=== PATIENT | female | born 1985 | race American Indian/Alaskan Native ===

== ENCOUNTER 2016-12-19 07:01 | Emergency (ER) | payer OTHER ==
[2016-12-19 07:16] VITALS: BP 172/66
[2016-12-19] MEDS ORDERED: ZOFRAN ODT PO ONE (07:38)
[2016-12-19] MEDS ORDERED: LIDOCAINE VISCOUS 2% PO ONE (07:38)
[2016-12-19] MEDS ORDERED: MILK OF MAGNESIA PO ONE (07:40)
[2016-12-19] MEDS ORDERED: ZOFRAN IV ONE (08:43)
[2016-12-19] MEDS ORDERED: PEPCID IV ONE (08:43)
[2016-12-19] MEDS ORDERED: PROTONIX IV ONE (08:43)
[2016-12-19] MEDS ORDERED: NACL 0.9% 1000 ML 1,000 ML ONE (09:31)
[2016-12-19] MEDS ORDERED: NACL 0.9% 1000 ML 1,000 ML IV ONE (09:35)
[2016-12-19 09:47] LABS: Hematocrit 39.8 % (30.3-42.9); Hemoglobin 13.2 gm/dl (10.1-14.3); Mean Corpuscular HGB Conc 33 % (30-34); Mean Corpuscular Hemoglobin 28 pg (28-32); Mean Corpuscular Volume 86 fl (79-97); Platelet Count 200 K/mm3 (140-440); Red Blood Count 4.65 M/mm3 (3.65-5.03); Red Cell Distribution Width 14.3 % (13.2-15.2); White Blood Count 13.6 K/mm3 (4.5-11.0)
[2016-12-19 10:04] LABS: Alanine Aminotransferase 12 units/L (7-56); Albumin 4.4 g/dL (3.9-5); Albumin/Globulin Ratio 1.3 %; Alkaline Phosphatase 83 units/L (35-129); Anion Gap 22 mmol/L; BUN/Creatinine Ratio 11.42; Blood Urea Nitrogen 8 mg/dL (7-17); Calcium 9.5 mg/dL (8.4-10.2); Carbon Dioxide 21 mmol/L (22-30); Chloride 99.8 mmol/L (98-107); Glucose 120 mg/dL (65-100); Lipase 23 units/L (13-60); Potassium 3.5 mmol/L (3.6-5.0); Sodium 139 mmol/L (137-145); Total Protein 7.8 g/dL (6.3-8.2)
[2016-12-19] MEDS ORDERED: REGLAN IV ONE (11:45)
--- NOTE | 2016-12-19 13:16 | Emergency Department Report ---
Vomiting/Diarrhea - [facility] Chief Complaint: Nausea/Vomiting/Diarrhea Stated Complaint: CP/VOMITING Time Seen by Provider: 12/19/16 07:46 Duration: 5 Days Severity: mild Nausea/Vomiting Severity: Mild Diarrhea Severity: Mild Pain Location: Epigastric Pain Severity: Mild Symptoms: Yes Able to Tolerate Fluids, No Watery Diarrhea, No Bloody diarrhea, No Fever, No Recent Unusual Foods, No Recent Untreated Water, No Recent use of Antibiotics, No Family w/ Similar Symptoms, No Contacts w/ Similar Symptoms, No Rash, No Hematuria, No Recent URI Symptoms Other History: 31 year old female presents with NVD and upper abdominal pain for about a week. states that she has changed her diet to exclude meat but continues to have same symptoms. states pain is in upper abdomen and substernal. denies fever, sob, dysuria, pelvic pain. ED Review of Systems ROS: Stated complaint: CP/VOMITING Other details as noted in HPI Constitutional: denies: chills, fever Eyes: denies: eye pain, eye discharge, vision change ENT: denies: ear pain, throat pain Respiratory: denies: cough, shortness of breath, wheezing Cardiovascular: denies: chest pain, palpitations Endocrine: no symptoms reported Gastrointestinal: abdominal pain, nausea, vomiting, diarrhea Genitourinary: denies: urgency, dysuria, discharge Musculoskeletal: denies: back pain, joint swelling, arthralgia Skin: denies: rash, lesions Neurological: denies: headache, weakness, paresthesias Psychiatric: denies: anxiety, depression Hematological/Lymphatic: denies: easy bleeding, easy bruising ED Past Medical Hx - Past Medical History Previous Medical History?: Yes Hx Hypertension: Yes Hx Arthritis: Yes Hx Asthma: Yes - Surgical History Past Surgical History?: No - Social History Smoking Status: Never Smoker Substance Use Type: Alcohol - Medications Home Medications: Home Medications Medication Instructions Recorded Confirmed Last Taken Type Ondansetron [Zofran Odt] 4 mg PO Q6H #14 tab.rapdis 12/19/16 Unknown Rx Vomiting Diarrhea Exam - Exam General: Vital signs noted. No distress. Alert and acting appropriately. HEENT: Yes Moist Mucous Membranes, No Pharyngeal Erythema, No Pharyngeal Exudates, No Rhinorrhea, No Conjuctival Injection, No Frontal Tenderness, No Maxillary Tenderness Neck: No Adenopathy, No Rigidity Lungs: Yes Clear Lung Sounds, Yes Good Air Exchange, No Wheezes, No Stridor, No Cough, No Nasal Flaring, No Retractions, No Use of Accessory Muscles Heart exam: Regular: Yes, Murmur: No, Tachycardia: No Abdomen: Tenderness: Yes (epigastric. negative murphys), Peritoneal Signs: No, Distention: No, Hyperactive Bowel sounds: No Skin exam: Rash: No, Edema: No, Normal turgor: Yes Neurologic: Alert and oriented, no deficits. Musculoskeletal: Unremarkable. ED Course Vital Signs 12/19/16 12/19/16 07:12 08:37 Temperature 97.4 F L Pulse Rate 72 Respiratory 16 20 Rate Blood Pressure 172/66 O2 Sat by Pulse 100 98 Oximetry ED Medical Decision Making - Lab Data Result diagrams: 12/19/16 09:28 12/19/16 09:28 Vital Signs 12/19/16 12/19/16 07:12 08:37 Temperature 97.4 F L Pulse Rate 72 Respiratory 16 20 Rate Blood Pressure 172/66 O2 Sat by Pulse 100 98 Oximetry Laboratory Results - last 24 hr 12/19/16 12/19/16 09:28 09:28 WBC 13.6 H RBC 4.65 Hgb 13.2 Hct 39.8 MCV 86 MCH 28 MCHC 33 RDW 14.3 Plt Count 200 Sodium 139 Potassium 3.5 L Chloride 99.8 Carbon Dioxide 21 L Anion Gap 22 BUN 8 Creatinine 0.7 Estimated GFR > 60 BUN/Creatinine Ratio 11.42 Glucose 120 H Calcium 9.5 Total Bilirubin 0.40 AST 16 ALT 12 Alkaline Phosphatase 83 Total Protein 7.8 Albumin 4.4 Albumin/Globulin Ratio 1.3 Lipase 23 - Medical Decision Making Patient states significant relief with medication in the ED. Patient states nausea has improved the medication and pain has subsided. We'll continue Zofran as outpatient follow-up to GI. Critical care attestation.: If time is entered above; I have spent that time in minutes in the direct care of this critically ill patient, excluding procedure time. ED Disposition Clinical Impression: Viral gastroenteritis Disposition: DISCHARGED TO HOME OR SELFCARE Is pt being admited?: No Does the pt Need Aspirin: No Condition: Good Instructions: Gastroenteritis (ED) Additional Instructions: take medication as prescribed. follow up with GI specialist. return to the ED if symptoms worsen. Prescriptions: Ondansetron [Zofran Odt] 4 mg PO Q6H #14 tab.rapdis Referrals: PRIMARY CARE, [Primary Care Provider] - 3-5 Days Forms: Work/School Release Form(ED) Time of Disposition: 13:21
== END 2016-12-19 13:35 | disposition home or self-care (01) ==
LOC: ED 07:01
DX: A08.4 Viral intestinal infection, unspecified (principal); I10 Essential (primary) hypertension; M19.90 Unspecified osteoarthritis, unspecified site; J45.909 Unspecified asthma, uncomplicated
CPT/HCPCS: 36415; 80053; 83690; 85027; 93005; 93010; 96361; 96374; 96375; 99283; C9113; J2405; J2765; J7030; Q0162